=== PATIENT | male | born 1935 | race Asian ===

== ENCOUNTER 2024-07-05 09:24 | Inpatient (IN) | payer MEDICARE, OTHER ==
[~2024-07-05] VITALS: Ht 157.5 cm; Wt 56.0 kg
[~2024-07-05 09:24] MED LIST: AMLO2.5T96 PO; ASPI-1450 PO; FURO40 PO
[2024-07-05 10:02] LABS: BASOPHILS % (AUTO) 1.5 % (0.0-2.0); EOSINOPHILS % (AUTO) 0.9 % (1.0-6.0); HEMATOCRIT 39.8 % (41-53); HEMOGLOBIN 12.9 g/dL (13.5-17.5); LYMPHOCYTES # (AUTO) 0.6 K/uL (1.0-4.8); LYMPHOCYTES % (AUTO) 10.7 % (22.0-44.0); MEAN CORPUSCULAR HEMOGLOBIN 32.6 pg (26.0-34.0); MEAN CORPUSCULAR HGB CONC 32.4 G/dL (31.0-37.0); MEAN CORPUSCULAR VOLUME 100 fL (80-100); MONOCYTES # (AUTO) 0.5 K/uL (0.1-1.0); MONOCYTES % (AUTO) 8.5 % (2.0-9.0); NEUTROPHILS # (AUTO) 4.6 K/uL (1.8-7.7); NEUTROPHILS % (AUTO) 78.4 % (40.0-70.0); PLATELET COUNT (AUTO) 205 K/uL (150-450); RED BLOOD CELL COUNT(AUTO) 3.97 MIL/uL (4.50-5.90); RED CELL DISTRIBUTION WIDTH 13.3 % (11.5-14.5); WHITE BLOOD COUNT (AUTO) 5.9 K/uL (4.5-11.0)
[2024-07-05 10:13] LABS: CALCIUM, TOTAL 9.3 mg/dL (8.8-10.5); CREATININE 3.52 mg/dL (0.60-1.30); POTASSIUM 4.1 mmol/L (3.5-5.1)
[2024-07-05 10:15] LABS: PROTHROMBIN TIME 10.7 SEC (9.4-11.6)
[2024-07-05 10:19] LABS: ALBUMIN 3.9 g/dL (3.4-5.0); BILIRUBIN,TOTAL 0.8 mg/dL (0.1-1.0)
[2024-07-05 10:20] LABS: TROPONIN I-HIGH SENSITIVITY 16 ng/L (<76)
[2024-07-05 10:39] LABS: RBC MORPHOLOGY COMMENT ABNORMAL RBC MORPH
[2024-07-05] MEDS: NITROGLYCERIN 2% (1 GM=INCH) OINTMENT PACKET TP ONE (11:00)
[2024-07-05] MEDS: FUROSEMIDE 20 MG/2 ML VIAL IVP ONE (11:00)
[2024-07-05 13:06] LABS: APPEARANCE,URINE CLEAR (CLEAR); BILIRUBIN,URINE NEGATIVE (NEGATIVE); COLOR,URINE COLORLESS (YELLOW); GLUCOSE, URINE (UA) 300-500 mg/dL (NEGATIVE); KETONES,URINE NEGATIVE (NEGATIVE); LEUKOCYTE ESTERASE ,URINE NEGATIVE (NEGATIVE); NITRATE,URINE NEGATIVE (NEGATIVE); OCCULT BLOOD,URINE NEGATIVE (NEGATIVE); PH,URINE 5.5 (5.0-8.0); PROTEIN,URINE NEGATIVE (NEGATIVE); SPECIFIC GRAVITIY, URINE 1.009 (1.003-1.030); UROBILINOGEN,URINE <=1.0 mg/dL (<=1.0)
[2024-07-05 13:18] LABS: BACTERIA,URINE None Seen /HPF (None Seen); RBC,URINE None Seen /HPF (0-2); WBC,URINE None Seen /HPF (0-5)
[2024-07-05 17:31] VITALS: BP 156/65; PULSE 44; RESP 18; TEMP 98; O2SAT 98
[2024-07-05 20:04] VITALS: BP 128/54; PULSE 47; RESP 18; TEMP 97.7; O2SAT 99
[2024-07-05] MEDS ORDERED: ONDANSETRON HCL 4 MG/2 ML VIAL IVP PRN (23:00)
[2024-07-05] MEDS: HEPARIN SODIUM,PORCINE 5,000 UNITS/ML VIAL SQ SCH (23:44)
[2024-07-05] MEDS: FUROSEMIDE 40 MG TABLET PO SCH (23:44)
[2024-07-06 00:07] VITALS: BP 124/54; PULSE 84; RESP 18; TEMP 97; O2SAT 99
[2024-07-06 02:49] LABS: TROPONIN I-HIGH SENSITIVITY 14 ng/L (<76)
[2024-07-06 05:01] VITALS: BP 116/53; PULSE 48; RESP 18; TEMP 97.9; O2SAT 100
[2024-07-06 07:04] LABS: BASOPHILS % (AUTO) 0.9 % (0.0-2.0); EOSINOPHILS % (AUTO) 3.2 % (1.0-6.0); HEMATOCRIT 38.1 % (41-53); HEMOGLOBIN 12.5 g/dL (13.5-17.5); LYMPHOCYTES # (AUTO) 0.7 K/uL (1.0-4.8); LYMPHOCYTES % (AUTO) 10.6 % (22.0-44.0); MEAN CORPUSCULAR HEMOGLOBIN 32.9 pg (26.0-34.0); MEAN CORPUSCULAR HGB CONC 32.9 G/dL (31.0-37.0); MEAN CORPUSCULAR VOLUME 100 fL (80-100); MONOCYTES # (AUTO) 0.5 K/uL (0.1-1.0); NEUTROPHILS # (AUTO) 5.3 K/uL (1.8-7.7); NEUTROPHILS % (AUTO) 77.3 % (40.0-70.0); PLATELET COUNT (AUTO) 180 K/uL (150-450); RED BLOOD CELL COUNT(AUTO) 3.81 MIL/uL (4.50-5.90); RED CELL DISTRIBUTION WIDTH 13.3 % (11.5-14.5); WHITE BLOOD COUNT (AUTO) 6.8 K/uL (4.5-11.0)
[2024-07-06 07:38] LABS: ALBUMIN 3.7 g/dL (3.4-5.0); CALCIUM, TOTAL 9.4 mg/dL (8.8-10.5); CHOL/HDL RATIO 2.6 (4.2-7.3); CREATININE 3.33 mg/dL (0.60-1.30); MAGNESIUM 2.3 mg/dL (1.80-2.40); POTASSIUM 4.3 mmol/L (3.5-5.1); THYROID STIMULATING HORMONE 1.37 uIU/mL (0.36-3.74); TOTAL PROTEIN, SERUM 7.5 g/dL (6.4-8.2)
[2024-07-06 07:48] VITALS: BP 125/52; PULSE 43; RESP 18; TEMP 97.6; O2SAT 98
[2024-07-06] MEDS: ASPIRIN 81 MG CHEWABLE TABLET PO SCH (07:58)
[2024-07-06] MEDS: AmLODIPine BESYLATE 2.5 MG TABLET PO SCH (07:58)
[2024-07-06] MEDS: OXYGEN THERAPY IH SCH (07:59)
[2024-07-06 08:37] LABS: HEMOGLOBIN A1C 5.3 % (3.8-5.6)
[2024-07-06 08:54] LABS: RBC MORPHOLOGY COMMENT ABNORMAL RBC MORPH
[2024-07-06 09:11] LABS: TROPONIN I-HIGH SENSITIVITY 14 ng/L (<76)
[2024-07-06 11:30] VITALS: BP 113/47; PULSE 42; RESP 18; TEMP 97; O2SAT 97
[2024-07-06 14:43] LABS: TROPONIN I-HIGH SENSITIVITY 13 ng/L (<76)
[2024-07-06 15:55] VITALS: BP 157/60; PULSE 43; RESP 18; TEMP 98; O2SAT 98
[2024-07-06 20:04] VITALS: BP 141/63; PULSE 45; RESP 20; TEMP 97.7; O2SAT 100
[2024-07-06 20:48] LABS: TROPONIN I-HIGH SENSITIVITY 15 ng/L (<76)
[2024-07-07 00:20] VITALS: BP 121/54; PULSE 97; RESP 20; TEMP 98; O2SAT 100
[2024-07-07 04:23] VITALS: BP 125/59; PULSE 47; RESP 20; TEMP 97.7; O2SAT 99
[2024-07-07 06:50] LABS: CALCIUM, TOTAL 9.2 mg/dL (8.8-10.5); CREATININE 3.28 mg/dL (0.60-1.30); POTASSIUM 4.1 mmol/L (3.5-5.1)
[2024-07-07 08:00] VITALS: BP 118/57; PULSE 52; RESP 20; TEMP 97.2; O2SAT 98
[2024-07-07] MEDS: ACETAMINOPHEN 325 MG TABLET PO PRN (09:48)
[2024-07-07 12:00] VITALS: BP 124/54; PULSE 49; RESP 20; TEMP 97.8; O2SAT 100
[2024-07-07 16:00] VITALS: BP 127/60; PULSE 47; RESP 20; TEMP 97.5; O2SAT 100
[2024-07-07 20:30] VITALS: BP 117/49; PULSE 51; RESP 18; TEMP 98.2; O2SAT 98
[2024-07-08 04:00] VITALS: BP 115/59; PULSE 52; RESP 18; O2SAT 98
[2024-07-08 07:26] LABS: BASOPHILS % (AUTO) 0.7 % (0.0-2.0); EOSINOPHILS % (AUTO) 7.8 % (1.0-6.0); HEMATOCRIT 39.7 % (41-53); HEMOGLOBIN 13.4 g/dL (13.5-17.5); LYMPHOCYTES % (AUTO) 14.7 % (22.0-44.0); MEAN CORPUSCULAR HEMOGLOBIN 33.2 pg (26.0-34.0); MEAN CORPUSCULAR HGB CONC 33.6 G/dL (31.0-37.0); MEAN CORPUSCULAR VOLUME 99 fL (80-100); MONOCYTES # (AUTO) 0.6 K/uL (0.1-1.0); MONOCYTES % (AUTO) 9.1 % (2.0-9.0); NEUTROPHILS # (AUTO) 4.6 K/uL (1.8-7.7); NEUTROPHILS % (AUTO) 67.7 % (40.0-70.0); PLATELET COUNT (AUTO) 173 K/uL (150-450); RED BLOOD CELL COUNT(AUTO) 4.02 MIL/uL (4.50-5.90); RED CELL DISTRIBUTION WIDTH 13.2 % (11.5-14.5); WHITE BLOOD COUNT (AUTO) 6.7 K/uL (4.5-11.0)
[2024-07-08 07:49] LABS: BILIRUBIN,TOTAL 0.9 mg/dL (0.1-1.0); CALCIUM, TOTAL 9.4 mg/dL (8.8-10.5); CREATININE 3.48 mg/dL (0.60-1.30); POTASSIUM 3.7 mmol/L (3.5-5.1); TOTAL PROTEIN, SERUM 7.6 g/dL (6.4-8.2)
[2024-07-08 08:00] VITALS: BP 136/58; PULSE 51; RESP 18; TEMP 97.6; O2SAT 99
[2024-07-08 09:10] VITALS: BP_SYST 139; BP_SYST 158; BP_SYST 160; BP_DIAS 69; BP_DIAS 74; BP_DIAS 87; PULSE 58
[2024-07-08 12:00] VITALS: BP 118/50; PULSE 49; RESP 18; TEMP 98.1; O2SAT 98
[2024-07-08 16:00] VITALS: BP 118/56; PULSE 57; RESP 18; TEMP 98; O2SAT 100
[2024-07-08 20:10] VITALS: BP 113/52; PULSE 56; RESP 18; TEMP 97.8; O2SAT 98
[2024-07-09 00:38] VITALS: BP 134/55; PULSE 55; RESP 18; TEMP 97.6; O2SAT 100
[2024-07-09 04:32] VITALS: BP 153/67; PULSE 56; RESP 20; TEMP 97.7; O2SAT 100
[2024-07-09] MEDS: FUROSEMIDE 40 MG TABLET PO SCH (08:35)
== END 2024-07-09 10:00 | DRG 291 ==
LOC: EMS 09:24 → EDH 15:54 → 5N 17:20
PROVIDERS: ADMIT Internal Medicine; ATTEND Internal Medicine
DX: I13.0 Hypertensive heart and chronic kidney disease with heart failure and stage 1 through stage 4 chronic kidney disease, or unspecified chronic kidney disease (principal); I50.33 Acute on chronic diastolic (congestive) heart failure; N17.9 Acute kidney failure, unspecified; G89.29 Other chronic pain; M54.50 Low back pain, unspecified; N18.9 Chronic kidney disease, unspecified; F03.C0 Unspecified dementia, severe, without behavioral disturbance, psychotic disturbance, mood disturbance, and anxiety
CPT/HCPCS: 71045; 76770; 80048; 80053; 80061; 81001; 82550; 83036; 83735; 83880; 84443; 84484; 85025; 85610; 85730; 93005; 93306; 99285; J1644; J1940; 36415-L1; 36415-TC